=== PATIENT | male | born 1990 | race Two or more races ===

== ENCOUNTER 2025-03-07 07:10 | Day surgery (SDC) | payer MEDICAID, SELFPAY ==
[2025-03-06 07:30] VITALS: BMI 28.6
[2025-03-06 08:52] LABS: Basophils # (Auto) 0.0 Thou/mm3 (0.0-0.2); Basophils % (Auto) 0 % (0-2.5); Eosinophils # (Auto) 0.2 Thou/mm3 (0.0-0.5); Eosinophils % (Auto) 2 % (0-10); Hematocrit 43.2 % (41.0-53.0); Hemoglobin 14.8 g/dL (13.5-16.0); Immature Granulocytes Auto 0.02 Thou/mm3 (0.00-0.00); Lymphocytes # (Auto) 2.6 Thou/mm3 (1.0-4.8); Lymphocytes % (Auto) 29 % (10-50); Mean Corpuscular HGB Conc 34.3 g/dl (31.0-37.0); Mean Corpuscular Hemoglobin 30.9 pg (25.0-35.0); Mean Corpuscular Volume 90 fL (80-100); Monocytes # (Auto) 0.6 Thou/mm3 (0.0-0.8); Monocytes % (Auto) 6 % (0-12); Neutrophils # (Auto) 5.5 Thou/mm3 (1.8-7.7); Neutrophils % (Auto) 62 % (37-80); Nucleated Red Blood Cell # 0.00 Thou/mm3 (0.00-0.00); Nucleated Red Blood Cell % 0 /100 WBC (0); Platelet Count 260 Thou/mm3 (140-440); RDW Standard Deviation 42.7 fL (35.1-43.9); Red Blood Count 4.79 Miln/mm3 (4.50-5.90); White Blood Count 8.9 Thou/mm3 (3.8-10.6)
[2025-03-06 09:13] LABS: Anion Gap 9 (7-16); BUN/Creatinine Ratio 16 Ratio (12-20); Blood Urea Nitrogen 14 mg/dL (9-23); Calcium 9.0 mg/dL (8.3-10.6); Carbon Dioxide 28.2 mMol/L (20.0-31.0); Chloride 108 mMol/L (98-107); Creatinine (Component) 0.9 mg/dL (0.6-1.3); Estimated Creatinine Clearance 133.4 mL/min (>60); Glucose 100 mg/dL (74-106); Osmolality,Calculated 289 (275-295); Potassium 4.4 mMol/L (3.4-5.1); Sodium 145 mMol/L (136-145); eGFR > 60 See Note
--- NOTE | 2025-03-06 09:22 | ESHP_ITS ---
RE: ERICK THURSTON : 1990 DATE OF ADMISSION: 03/06/2025 HISTORY OF PRESENT ILLNESS: A 34-year-old gentleman desiring bilateral vasectomy for family planning. He has 1 child. His has a seizure disorder. PAST SURGICAL HISTORY: Eye surgery. ALLERGIES: NONE KNOWN. PAST MEDICAL HISTORY: No history of diabetes mellitus. No history of hypertension. HOME MEDICATIONS: None. PHYSICAL EXAMINATION: HEENT: Normal. NECK: Supple. LUNGS: Clear. CARDIOVASCULAR: Heart sounds are normal. ABDOMEN: Soft without any organomegaly. No guarding. No rigidity. EXTREMITIES: Normal. IMPRESSION: Patient desiring bilateral vasectomy for family planning. PLAN: Bilateral vasectomy. Planned procedure risks and complications have been discussed with the patient. Patient has understood them and agreed to proceed. DT: 09:14:07 TT: 09:22:00 Ref: [id number] - TID: [id number]
[2025-03-07] VITALS (8 sets, daily range): BP systolic 114–138; BP diastolic 68–84; PULSE 66–100; RESP 12–22; TEMP 36.8; O2SAT 97–100; BMI 28.2
[2025-03-07] MEDS: RINGERS LACTATED 1000 ML 1,000 ML 20 ML IV (07:43)
--- NOTE | 2025-03-07 08:02 | SUR.PREOP ---
Patient expressed gratitude for prayer before their procedure.
--- NOTE | 2025-03-07 08:07 | SUR.PREOP ---
Patient expressed gratitude for prayer before their procedure.
--- NOTE | 2025-03-07 10:47 | SUR.PHASEI ---
1034: Pt received in [facility] via [facility]. Report from Ulises DENT and Willi AVALOS. Pt groggy. Is responsive with eye opening then drifts back to sleep. Resp even, unlabored. VS stable. Dressing to scrotum dry, clean, intact. Ice pack applied. Denies pain.
--- NOTE | 2025-03-07 10:57 | SUR.PHASEI ---
1056: Pt resting with no complaints voiced. Resp even, unlabored. VS stable. Dressing remains dry, clean, intact. Denies pain.
--- NOTE | 2025-03-07 11:22 | SUR.PHASEII ---
1115: Pt resting with no complaints voiced. VS stable. Dressing remains dry, clean, intact. Denies pain. Pt sitting up tolerating po fluids with no difficulty swallowing and no n/v.
--- NOTE | 2025-03-07 11:59 | SUR.PHASEII ---
1144: Pt fully awake, oriented x3. VS stable. Dressing dry, clean, intact. Denies pain. Pt and stated understanding of discharge instructions. Pt also instructed to pickle pumper his prescription at [facility]. Pt discharged from [facility] in stable conditon.
--- NOTE | 2025-03-07 20:47 | ESOP_ITS ---
RE: ERICK THURSTON : 1990 DATE OF OPERATION: 03/07/2025 PREOPERATIVE DIAGNOSIS: Patient desiring bilateral vasectomy for family planning. POSTOPERATIVE DIAGNOSIS: Patient desiring bilateral vasectomy for family planning. PROCEDURE PERFORMED: Bilateral vasectomy. ANESTHESIA: General by Yinka Luna CRNA INDICATION: Patient is 34-year-old gentleman desiring bilateral vasectomy for family planning. Planned procedure, risks, and complications have been discussed with the patient. Patient understood them and agreed to proceed. DESCRIPTION OF PROCEDURE: After the patient was brought to the operating table under adequate general anesthesia and supine position, parts were prepped and draped in the usual fashion. Right vas deferens was made subcutaneous. A small transverse incision of 0.5 cm was made over the vas deferens. Dissection was then carried out. A small segment of the vas deferens was identified and was selected. 2 clamps were placed on the vas deferens and the segment between the clamps was excised and was sent for examination. The ends of the vas deferens were fulgurated and ligated with 3-0 chromic catgut sutures. Complete hemostasis was obtained. The skin wound was closed with interrupted sutures of 3-0 chromic catgut sutures. In a similar fashion, the left-sided vasectomy was also done. Local anesthetic was injected at the site of the skin. Sterile dressing was then applied. Patient was then transferred to the recovery room in a satisfactory condition having tolerated the entire procedure well. Sponge count and needle count at the end of the procedure was found to be correct. Estimated blood loss was approximately 2 mL. DT: 10:41:57 TT: 20:46:00 Ref: [id number] - TID: [id number]
== END 2025-03-07 11:44 | disposition home or self-care (01) ==
PROVIDERS: PCP Nurse Practitioner; Referring Provider Surgery; Visit Provider Surgery
PROC: (CPT 55250; principal; 2025-03-07 09:15)
DX: Z30.2 Encounter for sterilization (principal)
CPT/HCPCS: 55250; 36415; 80048; 85025; A4649; J0131; J0690; J2250; J2704; J3010; J3490; J7120; L8330; A9270; J1596